=== PATIENT | male | born 1995 | race African-American/Black ===

== ENCOUNTER 2020-06-11 16:27 | Emergency (ER) | payer OTHER ==
[~2020-06-11] VITALS: Ht 180.3 cm; Wt 83.5 kg
--- NOTE | 2020-06-11 17:29 | REPVR ---
PROCEDURE INFORMATION: Exam: US Scrotum Exam date and time: 06/11/2020 5:06 PM Age: 24 years old Clinical indication: Scrotum pain; Additional info: Left testicular lump/pain TECHNIQUE: Imaging protocol: Real-time ultrasound of the scrotum and contents with color Doppler and image documentation. COMPARISON: No relevant prior studies available. FINDINGS: Right testicle: The right testicle measures 4.3 cm in length by 1.9 cm in thickness with vascular flow and no evidence of torsion. Left testicle: The left testicle measures 4 cm in length by 2.2 cm in thickness and there is vascular flow with no evidence of torsion. The head of the epididymis on left measures 7 mm. There are small varices left spermatic cord. Epididymides: The head of the epididymis on the right measures 8 mm and there are 2 tiny epididymal head cysts. There is a calcification at the head of the epididymis measuring 2 mm. Left epididymal head measures 7 mm. Scrotum: Small bilateral hydroceles are noted. IMPRESSION: 1. Normal appearing right left testicle with no evidence of torsion. 2. Mild varices left spermatic cord. Electronically signed by: Stephan Ramirez On 06/11/2020 17:29:49 PM
[2020-06-11 18:04] VITALS: BP 161/98
[2020-06-11 19:07] LABS: CHLAMYDIA DNA AMPLIFICATION NEGATIVE (NEGATIVE); GC DNA AMPLIFICATION NEGATIVE (NEGATIVE)
--- NOTE | 2020-06-14 19:34 | ED PDOC ---
Post-Departure Follow-Up scrotal us faxed to jada bates for fu Mirian Felton MD Jun 14, 2020 19:34
== END 2020-06-11 18:12 | disposition home or self-care (01) ==
LOC: M ED 16:27
DX: I86.1 Scrotal varices (principal); N44.2 Benign cyst of testis

== ENCOUNTER 2021-06-04 22:40 | Emergency (ER) | payer OTHER ==
[~2021-06-04] VITALS: Ht 180.3 cm; Wt 83.5 kg
[2021-06-05 00:20] LABS: BASO # 0.1 10^3/uL (0.0-0.2); BASO % 0.6 % (0.0-1.0); EOS # 0.2 10^3/uL (0.0-0.5); EOS % 1.7 % (0.0-3.0); HEMATOCRIT 42.1 % (42.0-52.0); HEMOGLOBIN 14.7 g/dl (13.5-17.5); LYMPH # 2.7 10^3/uL (1.5-5.0); LYMPH % 27.2 % (24.0-44.0); MEAN CORPUSCULAR HEMOGLOBIN 30.6 pg (27.0-33.0); MEAN CORPUSCULAR HGB CONC 34.9 g/dl (32.0-36.5); MEAN CORPUSCULAR VOLUME 87.7 fl (80.0-96.0); MONO # 1.3 10^3/uL (0.0-0.8); NEUTROPHILS # 5.8 10^3/uL (1.5-8.5); NEUTROPHILS % 57.3 % (36.0-66.0); PLATELET COUNT, AUTOMATED 251 10^3/uL (150-450); WHITE BLOOD COUNT 10.1 10^3/uL (4.0-10.0)
[2021-06-05 00:54] LABS: ALBUMIN 3.8 GM/DL (3.2-5.2); ALT/SGPT 20 U/L (12-78); BILIRUBIN,DIRECT < 0.1 MG/DL (0.0-0.2); BILIRUBIN,TOTAL 0.6 MG/DL (0.2-1.0); BLOOD UREA NITROGEN 13 MG/DL (7-18); CALCIUM LEVEL 8.4 MG/DL (8.5-10.1); CARBON DIOXIDE LEVEL 30 MEQ/L (21-32); CHLORIDE LEVEL 107 MEQ/L (98-107); CREATININE FOR GFR 1.31 MG/DL (0.70-1.30); GLOMERULAR FILTRATION RATE > 60.0 (>60); GLUCOSE, FASTING 98 MG/DL (70-100); LIPASE 89 U/L (73-393); SODIUM LEVEL 140 MEQ/L (136-145); TOTAL PROTEIN 6.5 GM/DL (6.4-8.2)
[2021-06-05 01:12] VITALS: BP 161/94
[2021-06-05] MEDS ORDERED: MAALOX 30 ML SUSP *UDC PO ONE (02:15)
== END 2021-06-05 03:37 | disposition home or self-care (01) ==
LOC: M ED 22:40
DX: R14.0 Abdominal distension (gaseous) (principal)

== ENCOUNTER → 2021-08-05 | Outpatient (REF) | LOC: M PLAIMG 12:24 | PROVIDERS: ATTEND Internal Medicine | DX: R06.02 Shortness of breath (principal); M25.539 Pain in unspecified wrist ==